=== PATIENT | female | born 1980 | race Caucasian/White ===

== ENCOUNTER 2017-01-02 14:21 | Emergency (ER) | payer OTHER ==
[2017-01-02 14:50] VITALS: TEMP 98.4
--- NOTE | 2017-01-02 16:32 | UCPHY ---
H & P Time Seen by Provider: 01/02/17 15:07 Patient Type: New HPI/ROS: CHIEF COMPLAINT: Vertigo persists HISTORY OF PRESENT ILLNESS: This is a 36-year-old previously healthy female who is upset as the extent of her vertigo continues, she is no better despite physical therapy, and the vertigo was problematic to the point where she is unable to care for her children affectively. She noted onset of a movement sensitive spinning sensation approximately 5 days ago. She was seen by her PCP the next day some 4 days ago. The evaluation showed her to have nystagmus when today [place] Angelina test was performed and was referred to physical therapy. Furthermore she was given prescription for Zofran and meclizine she has been taking concomitant LEEP at the same time. Some 2 days ago she was seen by the physical therapist and a Katelyn maneuver was performed x3, and she noted distinct improvement and lessening of her symptomatology. She notes that she was able to tolerate the drive home a particularly much better although notably she did not drive as she was a passenger. She is purposely avoiding driving. Today however symptoms have recurred. She did contact the physical therapist in when and they did not notice the ability to recreate the symptoms and the nystagmus. Thus she is quite frustrated as the symptoms are persistent, waxing waning, and I have not totally cleared. 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 Furthermore, the prospect of Meniere's disease is scaring her. In the interim no other untoward symptoms have evolved such as loss of function of arm or leg, overt ataxia, limb ataxia, or headache or diplopia or odd sensations, such as scotoma. Further she is worried that she may need antibiotic. She did have URI which was pretty much resolving some 3 weeks ago. She feels a pressure sensation in the left ear but no tinnitus per se. REVIEW OF SYSTEMS: Constitutional: No fever, no chills. Eyes: No discharge No diplopia ENT: No sore throat. Skin: No rashes. Neurological: No headache. 10 point ROS otherwise negative Smoking Status: Never smoked Physical Exam: General Appearance: Alert, no distress. Afebrile. Normal phonation. No respiratory distress. Speech is fluent Eyes: Pupils equal and round no pallor or injection. No icterus ENT, Mouth: Mucous membranes moist. Pharynx without erythema or exudate. TM Clear. She is able to hear to fingers rubbed 10 cm from either ear Neck: No adenopathy. Supple. No JVD. Trachea in midline. Respiratory: No respiratory distress. Able to speak in full sentences. Neurological: Ox3. No motor weakness. Sensation intact. Gait nl. Normal [id number]. No clonus. No signs of focal motor weakness. Cranial nerves 2- 12 are grossly intact. My Barnay-Test does show reproducible nystagmus which extinguishes after 15 seconds with head to the left. Skin: Warm and dry, no rashes. Musculoskeletal: No joint swelling. Extremities: No edema. Psychiatric: Normal affect. Well as up with tears at times Constitutional: Initial Vital Signs Temperature (C) 36.9 C 01/02/17 14:46 Heart Rate 79 01/02/17 14:46 Respiratory Rate 18 01/02/17 14:46 Blood Pressure 125/83 H 01/02/17 14:46 O2 Sat (%) 96 01/02/17 14:46 O2 Delivery Mode Room Air Allergies/Adverse Reactions: No Known Allergies Allergy (Unverified 01/02/17 14:43) Home Medications: Medication Instructions Recorded NK [No Known Home Meds] 01/02/17 Medical Decision Making ED Course/Re-evaluation: Symptomatology would suggest benign positional vertigo however acute dermatitis is also possibility. Hopefully that will be the case that she would have resolution within the next week. I do not see anything more untoward. We had a lengthy discussion of potential therapies. She certainly has tried the usual vis-a-vis Zofran and meclizine together. However she is frustrated as this is limiting her ability to care for herself and her family. 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 Finally, her symptoms are not that strong to suggest Ativan would be indicated + that further would aggravate her ability to care for her children and thus she is quite reticent to take that. For now she will stick with calling her PCP as well as seen in ENT, as scheduled in 3 days time on Thursday, taking Zofran Advil in the interim. Fortunately she is not driving. Differential Diagnosis: ED differential includes but not limited to: Vertigo, cerebellar tumor, cerebellar infarct, cerebellar hemorrhage, benign positional vertigo. Departure - Departure Disposition: Home, Routine, Self-Care Clinical Impression: Acute labyrinthitis Qualifiers: Laterality: unspecified laterality Qualified Code(s): H83.09 - Labyrinthitis, unspecified ear Condition: Good Instructions: Vertigo (ED) Additional Instructions: Continue to take your Zofran and/or meclizine. No driving until cleared by your nose and throat or ear symptoms have subsided completely Referrals: Phani Weldon MD [Primary Care Provider] - As per Instructions - PQRS PQRS Measurement: NA
[2017-01-02 16:55] VITALS: BP 104/71; PULSE 70; RESP 16; O2SAT 97
== END 2017-01-02 16:54 | disposition home or self-care (01) ==
LOC: CED 14:21
DX: H83.09 Labyrinthitis, unspecified ear (principal)
CPT/HCPCS: 99203-PO; G0463-PO

== ENCOUNTER → 2019-02-02 | Outpatient (CLI) | payer BC | LOC: FIMAGING 15:32 | PROVIDERS: ATTEND Family Medicine | DX: N64.59 Other signs and symptoms in breast (principal) ==